=== PATIENT | male | born 1935 | race Caucasian/White ===

== ENCOUNTER 2016-07-04 08:59 | Emergency (ER) | payer MEDICARE, OTHER ==
[2016-07-04 09:25] VITALS: BMI 22.8
--- NOTE | 2016-07-04 11:18 | EDPRACDOC ---
<Vishal Burch - Last Filed: 07/04/16 13:10> - General Information Information Source: Family - History of Present Illness Onset: 1 month HPI: C/o N/V/D, with "some blood" in emesis, REINA since last night. Pt has alzheimers, so HPI is not clear. Pt has girlfriend of pt's grandson who is not well versed in pt's health. Pt denies cp, sob, cough, sore throat, abdo pain, change in urine. Symptoms Occured: Reports: Spontaneous Duration: Reports: Since Onset Emesis: Reports: Food Particles Recent: Reports: None Pain Severity: Mild (headache) Associated Signs and Symptoms: Reports: Nausea, Vomiting, Diarrhea, Hematemesis Oral Intake: Normal Urinary Output: Normal <Stanley Alva - Last Filed: 07/06/16 04:44> - General Information Chief Complaint: Nausea,Vomiting,Diarrhea Stated Complaint: GI BLEED Time Seen by Provider: 07/04/16 10:58 Home Medications: Home Medications Omeprazole [Prilosec] 20 mg PO DAILY 05/07/12 Tamsulosin HCl [Flomax] 0.4 mg PO QAM 11/05/14 Fenofibrate [Lofibra] 160 mg PO DAILY 06/05/15 Ondansetron [Zofran Odt] 4 mg PO Q6H PRN #10 tab.rapdis 07/04/16 Simvastatin [Zocor] 40 mg PO DAILY 07/04/16 Allergies/Adverse Reactions: Allergies Allergy/AdvReac Type Severity Reaction Status Date / Time No Known Allergies Allergy Verified 07/04/16 09:22 - Treatment Prior to ED Arrival Reported Medications/Treatment [facility] Treatment BLS <Vishal Burch - Last Filed: 07/04/16 13:10> - Treatment Prior to ED Arrival Reported Medications/Treatment [facility] [facility] EMS Treatment BLS <Stanley Alva - Last Filed: 07/06/16 04:44> ED Past Medical History - History Reviewed Yes Nurses notes reviewed and agree except as marked - Patient Medical History Neurological History: Reports: Dementia Cardiac History: Reports: Hypertension, Hypercholesterolemia GI/ History: Reports: Renal Disease (HIGH CREATINE) Psychological History: Denies: Depression Systemic History: Denies: Cancer - Family Medical History Denies: Hypertension, Diabetes, Cancer, Stroke, Cardiac Disorders - Social Medical History Smoking Status: Former smoker <Stanley Alva - Last Filed: 07/06/16 04:44> EDM Review of Systems - Review of Systems ROS Negative Except as Marked: Yes All systems reviewed and were negative except as marked Gastrointestinal: Diarrhea, Nausea, Vomiting, Other (hemetemesis) <Stanley Alva - Last Filed: 07/06/16 04:44> - Physical Exam Last recorded Vital Signs: Last Vital Signs Temp 98.0 F 07/04/16 09:22 Pulse 94 07/04/16 10:26 Resp 20 07/04/16 09:22 BP 143/69 07/04/16 10:26 Pulse Ox 98 07/04/16 10:26 Oxygen Pulse Oxygen Saturation 98 O2 Device Oxygen Flow Rate Fraction of Inspired Oxygen ( FIO2) <Vishal Burch - Last Filed: 07/04/16 13:10> - Physical Exam Constitutional: No apparent distress, Alert Oriented to: Time, Person, Place Last recorded Vital Signs: Last Vital Signs Temp 98.0 F 07/04/16 09:22 Pulse 94 07/04/16 10:26 Resp 20 07/04/16 09:22 BP 143/69 07/04/16 10:26 Pulse Ox 98 07/04/16 10:26 Oxygen Pulse Oxygen Saturation 98 O2 Device Oxygen Flow Rate Fraction of Inspired Oxygen ( FIO2) - HEENT Head: Normal Eye Exam: Normal TMJ: Normal Neck: Normal - Respiratory/Cardiovascular Respiratory: Normal - CTA Cardiovascular: Normal - GI Auscultation: Normal Tenderness: Non tender - Musculoskeletal Back: Normal Extremities: Normal - Integumentary Skin: Normal - Neurologic Memory Impaired: Short-term Motor Function: Normal Cranial Nerve: Normal Cerebellar: Normal Mood Description: Normal Thought: Coherent Perception: Normal <Stanley Alva - Last Filed: 07/06/16 04:44> - Results 07/04/16 11:13 07/04/16 11:13 WBC 5.9 xk/uL (3.8-10.8) 07/04/16 11:13 RBC 5.00 xM/uL (4.70-6.10) 07/04/16 11:13 Hgb 15.5 g/dL (14.0-18.0) 07/04/16 11:13 Hct 45.9 % (42-52) 07/04/16 11:13 MCV 92 fL (80-94) 07/04/16 11:13 MCH 30.9 pg (27-32) 07/04/16 11:13 MCHC 33.7 g/dl (33-36) 07/04/16 11:13 RDW 13.2 % (11.5-14.5) 07/04/16 11:13 Plt Count 182 xk/uL (130-400) 07/04/16 11:13 MPV 7.9 fL (7.4-10.4) 07/04/16 11:13 Neut % (Auto) 81.8 % (45-76) H 07/04/16 11:13 Lymph % (Auto) 7.7 % (17-44) L 07/04/16 11:13 [place] % (Auto) 8.1 % (3-10) 07/04/16 11:13 Eos % (Auto) 2.1 % (0-5) 07/04/16 11:13 Baso % (Auto) 0.3 % (0-2) 07/04/16 11:13 Absolute Neuts (auto) 4.78 xk/uL (1.7-8.2) 07/04/16 11:13 Absolute Lymphs (auto) 0.41 xk/uL (0.65-4.75) L 07/04/16 11:13 Sodium 139 mEq/L (137-146) 07/04/16 11:13 Potassium 4.3 mEq/L (3.5-5.1) 07/04/16 11:13 Chloride 102 mEq/L (98-107) 07/04/16 11:13 Carbon Dioxide 24 mMOL/L (22-33) 07/04/16 11:13 Anion Gap 17 mEq/L (8-16) H 07/04/16 11:13 BUN 28 MG/DL (9-20) H 07/04/16 11:13 Creatinine 1.70 MG/DL (0.66-1.25) H 07/04/16 11:13 Estimated GFR (MDRD) 39 mL/min (>=60) L 07/04/16 11:13 Glucose 124 mg/dL (70-99) H 07/04/16 11:13 Calculated Osmolality 275 MOs/Kg (270-290) 07/04/16 11:13 Calcium 9.9 MG/DL (8.4-10.2) 07/04/16 11:13 Total Bilirubin 1.2 MG/DL (0.2-1.3) 07/04/16 11:13 AST 23 IU/L (17-59) 07/04/16 11:13 ALT 30 IU/L (21-72) 07/04/16 11:13 Alkaline Phosphatase 94 IU/L (50-160) 07/04/16 11:13 Troponin I < 0.01 ng/mL (<.04) 07/04/16 11:13 Total Protein 8.2 G/DL (6.3-8.2) 07/04/16 11:13 Albumin 4.6 G/DL (3.5-5.0) 07/04/16 11:13 Urine Color Dark yellow 07/04/16 12:10 Urine Clarity Sl cldy 07/04/16 12:10 Urine pH 5.0 (5.0-8.0) 07/04/16 12:10 Ur Specific [place] >/=1.035 (1.003-1.035) 07/04/16 12:10 Urine Protein 2+ (NEG/TRACE) H 07/04/16 12:10 Urine Glucose (UA) Neg (NEGATIVE) 07/04/16 12:10 Urine Ketones Neg (NEGATIVE) 07/04/16 12:10 Urine Occult Blood Neg (NEG/TRACE) 07/04/16 12:10 Urine Nitrite Neg (NEGATIVE) 07/04/16 12:10 Urine Bilirubin Neg (NEGATIVE) 07/04/16 12:10 Urine Urobilinogen <2.0 MG/DL (0-1) 07/04/16 12:10 Ur Leukocyte Esterase Neg (NEGATIVE) 07/04/16 12:10 Urine RBC 0-2 (0-2) 07/04/16 12:10 Urine WBC 0-2 (0-2) 07/04/16 12:10 Amorphous Sediment 1+ 07/04/16 12:10 Urine Bacteria Few (NEG/FEW) 07/04/16 12:10 Urine Mucus Mod (NEG/OCC) H 07/04/16 12:10 Lab Results 07/04/16 07/04/16 07/04/16 12:10 11:13 11:13 WBC 5.9 RBC 5.00 Hgb 15.5 Hct 45.9 MCV 92 MCH 30.9 MCHC 33.7 RDW 13.2 Plt Count 182 MPV 7.9 Neut % (Auto) 81.8 H Lymph % (Auto) 7.7 L [place] % (Auto) 8.1 Eos % (Auto) 2.1 Baso % (Auto) 0.3 Absolute Neuts (auto) 4.78 Absolute Lymphs (auto) 0.41 L Sodium Potassium Chloride Carbon Dioxide Anion Gap BUN Creatinine Estimated GFR (MDRD) Glucose Calculated Osmolality Calcium Total Bilirubin AST ALT Alkaline Phosphatase Troponin I < 0.01 Total Protein Albumin Urine Color Dark yellow Urine Clarity Sl cldy Urine pH 5.0 Ur Specific [place] >/=1.035 Urine Protein 2+ H Urine Glucose (UA) Neg Urine Ketones Neg Urine Occult Blood Neg Urine Nitrite Neg Urine Bilirubin Neg Urine Urobilinogen <2.0 Ur Leukocyte Esterase Neg Urine RBC 0-2 Urine WBC 0-2 Amorphous Sediment 1+ Urine Bacteria Few Urine Mucus Mod H 07/04/16 11:13 WBC RBC Hgb Hct MCV MCH MCHC RDW Plt Count MPV Neut % (Auto) Lymph % (Auto) [place] % (Auto) Eos % (Auto) Baso % (Auto) Absolute Neuts (auto) Absolute Lymphs (auto) Sodium 139 Potassium 4.3 Chloride 102 Carbon Dioxide 24 Anion Gap 17 H BUN 28 H Creatinine 1.70 H Estimated GFR (MDRD) 39 L Glucose 124 H Calculated Osmolality 275 Calcium 9.9 Total Bilirubin 1.2 AST 23 ALT 30 Alkaline Phosphatase 94 Troponin I Total Protein 8.2 Albumin 4.6 Urine Color Urine Clarity Urine pH Ur Specific [place] Urine Protein Urine Glucose (UA) Urine Ketones Urine Occult Blood Urine Nitrite Urine Bilirubin Urine Urobilinogen Ur Leukocyte Esterase Urine RBC Urine WBC Amorphous Sediment Urine Bacteria Urine Mucus <Vishal Burch - Last Filed: 07/04/16 13:10> - Results 07/04/16 11:13 07/04/16 11:13 <Stanley Alva - Last Filed: 07/06/16 04:44> Decision Time to Discharge: 13:10 - Departure Yes I personally saw and evaluated the patient. Disposition: Home <Vishal Burch - Last Filed: 07/04/16 13:10> <Stanley Alva - Last Filed: 07/06/16 04:44> - Departure Condition: Stable Final Diagnosis: Nausea and vomiting Instructions: Acute Nausea and Vomiting (ED) Referrals: None,No Provider [Primary Care Provider] - One Week Prescriptions: New Ondansetron [Zofran Odt] 4 mg PO Q6H PRN #10 tab.rapdis PRN Reason: Nausea/Vomiting No Action Omeprazole [Prilosec] 20 mg PO DAILY Tamsulosin HCl [Flomax] 0.4 mg PO QAM Fenofibrate [Lofibra] 160 mg PO DAILY Simvastatin [Zocor] 40 mg PO DAILY
[2016-07-04] MEDS ORDERED: ONDANSETRON HCL 4 MG ODT TAB PO ONE (11:20)
[2016-07-04 11:23] LABS: AUTOMATED BASOPHIL 0.3 % (0-2); AUTOMATED EOSINOPHIL 2.1 % (0-5); AUTOMATED LYMPH 7.7 % (17-44); AUTOMATED MONOCYTE 8.1 % (3-10); AUTOMATED NEUTROPHIL 81.8 % (45-76); MPV 7.9 fL (7.4-10.4)
[2016-07-04] MEDS ORDERED: NS 1,000 ML IV ONE (11:27)
[2016-07-04 11:44] LABS: BLOOD UREA NITROGEN 28 MG/DL (9-20); CALCIUM 9.9 MG/DL (8.4-10.2); CALCULATED OSMOLALITY 275 MOs/Kg (270-290); CHLORIDE 102 mEq/L (98-107); GLUCOSE 124 mg/dL (70-99); SODIUM LEVEL 139 mEq/L (137-146); TOTAL PROTEIN 8.2 G/DL (6.3-8.2)
[2016-07-04 12:20] LABS: AMORPHOUS 1+; LEUKOCYTES/URINE NEG (NEGATIVE); NITRITE/URINE NEG (NEGATIVE); RBC/URINE 0-2 (0-2); URINE OCCULT BLOOD NEG (NEG/TRACE); WBC/URINE 0-2 (0-2)
--- NOTE | 2016-07-04 12:39 | DIRPT ---
CLINICAL DATA: Headache EXAM: CT HEAD WITHOUT CONTRAST TECHNIQUE: Contiguous axial images were obtained from the base of the skull through the vertex without intravenous contrast. COMPARISON: MRI 02/26/2015 FINDINGS: Moderate to advanced atrophy. Negative for acute or chronic infarction. Negative for acute hemorrhage or mass lesion. No shift of the midline structures. Calvarium intact. IMPRESSION: Generalized atrophy without acute abnormality. Electronically Signed By: Bert Hickman M.D. On: 07/04/2016 12:36
[2016-07-04 14:11] VITALS: BP 139/77
[2016-07-04 14:12] VITALS: PULSE 74; TEMP 98.4
== END 2016-07-04 14:15 | disposition home or self-care (01) ==
LOC: ED 08:59
DX: R11.2 Nausea with vomiting, unspecified (principal); R51 Headache
CPT/HCPCS: 36415; 70450; 80053; 81001; 84484; 85025; 93005; 96360; 99284; A9270; J3490